=== PATIENT | male | born 1995 | race Asian ===

== ENCOUNTER 2017-11-08 17:39 | Emergency (ER) | payer OTHER ==
--- NOTE | 2017-11-08 18:20 | EDPHY ---
H & P Time Seen by Provider: 11/08/17 18:14 HPI/ROS: CHIEF COMPLAINT: Finger laceration HISTORY OF PRESENT ILLNESS: Patient presents by private vehicle with his friend with complaints of right index finger laceration. This is on the palmar side. He said he accidentally grabbed a knife while washing the dishes. He sustained a laceration less than 1 hr ago. Painful with movement. Improved at rest. Does not radiate. No difficulty bending or straightening the finger. No injury to the palm of the remainder of the hand. No numbness, tingling or weakness. Thinks that his tetanus is up-to-date. No other associated complaints or modifying factors. TIME OF INJURY: Less than 1 hr ago TETANUS STATUS: Less than 6 years ago MEDICAL/SURGICAL/SOCIAL HISTORY: Uncomplicated. Originally from [place]. [employer] student. REVIEW OF SYSTEMS: Ten systems reviewed and are negative unless otherwise noted in the HPI EXAMINATION General Appearance: Alert, no distress Head: normocephalic, atraumatic Cardiovascular: Pulses normal throughout. Brisk cap refill Neurological: A&O, sensory symmetric, strength symmetric Skin: Warm and dry, no rash. 1.5 cm laceration to the right index finger, radial side over the middle phalanx. No exposure of the vascular bundle. No exposure of the flexor or extensor tendons. Extremities: Minimal tenderness over the right index finger laceration. Full extension and flexion including superficialis and profundus apparatus. No foreign body. Neurovascular intact distally with brisk cap refill 2 point sensation. DIFFERENTIAL DIAGNOSES: Including but not limited to laceration, laceration with tendon injury, laceration with complication MDM: 6:15 p.m. Laceration to right index finger, palmar side less than 1 hr ago. Difficult to visualize the wound due to the dried blood. I have administered a digital block and we will irrigate the wound re-evaluated. He has full flexion extension of the finger including superficialis and profundus without any evidence of deep tissue structure injury. 7:20 p.m. Laceration to the right index finger that has been irrigated. Patient has declined suture repair in prefers skin adhesive. We discussed the risks and benefits of this, including increase healing time. He is willing to assume this risk. I do feel he is capable making this decision. I repaired the wound with skin adhesive. He will be placed in a finger splint due to lack of suture placement so that he may have improved healing. We discussed ED precautions for any signs of infection, pain or difficulty moving the finger. He is comfortable this plan discharged home stable condition. PROCEDURE: Digital Block Indication: Finger laceration Consent: Verbal Location: Right index Anesthesia: Lidocaine 1% plain, 0.25% Marcaine plain, 5mL Description: Base of the finger was prepped. The above was infused without difficulty. Tolerated well. Good anesthesia. Complications: None PROCEDURE: Laceration repair Consent: Verbal Location: Right index finger, middle phalanx, radial side. Length of repair: 1.5 cm Complexity: Simple Layer involvement: Single Anesthesia: Digital block Irrigation: Extensive Debridement: None Procedure description: Following good anesthesia, the wound was copiously irrigated. Wound bed was explored with a sterile glove, and there is no foreign body noted. No injury to the DP structures. Wound borders were approximated well with good hemostasis. Tolerated well without complication. Suture/Staple material: Skin adhesive Wound care: Routine as discussed SUPERVISION: This patient was independently evaluated without direct involvement of or examination by the attending physician. ED Precautions: Worsening pain. Erythema, edema, cyanosis, pallor, paresthesia or anesthesia. (Yeison Christian) Constitutional: Initial Vital Signs Temperature (C) 98.1 F 11/08/17 17:42 Heart Rate 85 11/08/17 17:42 Respiratory Rate 18 11/08/17 17:42 Blood Pressure 149/99 H 11/08/17 17:42 O2 Sat (%) 97 11/08/17 17:42 O2 Delivery Mode Room Air Allergies/Adverse Reactions: No Known Allergies Allergy (Unverified 11/08/17 17:41) Home Medications: Medication Instructions Recorded NK [No Known Home Meds] 11/08/17 MDM/Departure - [facility] ED Course/Re-evaluation: I did not see this patient while he was in the emergency department. However his care was discussed with the PA while the patient was in the department. I agree with treatment plan and management (Salvador Toledo) - Depart Disposition: Home, Routine, Self-Care Clinical Impression: Laceration of right index finger Qualifiers: Encounter type: initial encounter Damage to nail status: without damage Foreign body presence: without foreign body Qualified Code(s): S61.210A - Laceration without foreign body of right index finger without damage to nail, initial encounter Condition: Good Instructions: Laceration (ED), Skin Adhesive Care (ED) Additional Instructions: 1. Thin layer of bacitracin once daily for the next 2 days 2. Keep the wound covered while showering for the next 3 days 3. Daily wound care as discussed 4. Return here for suture removal in 7 days 5. Return here for signs of infection as discussed including warmth, redness, fever, drainage from the site 6. return here for increasing pain surrounding the laceration 7. Do not submerge the wound in any water, hot tub, swimming pool until sutures removed Referrals: Leeann Ocasio MD [Medical Doctor] - As per Instructions Physician,Emergency DeptMD [Medical Doctor] - As per Instructions (Seven days for suture removal) Print Language: Faroese Charlesarin
[2017-11-08] MEDS ORDERED: SKIN ADHESIVE (DERMABOND) 1 EACH TP ONE (19:13)
[2017-11-08 19:31] VITALS: BP 148/86
== END 2017-11-08 19:50 | disposition home or self-care (01) ==
PROC: 0HQFXZZ Repair Right Hand Skin, External Approach (ICD-10-PCS; principal; 2017-11-08)
DX: S61.210A Laceration without foreign body of right index finger without damage to nail, initial encounter (principal); W26.0XXA Contact with knife, initial encounter; Y93.G1 Activity, food preparation and clean up; Y99.8 Other external cause status